=== PATIENT | female | born 1960 | race Caucasian/White ===

== ENCOUNTER → 2016-11-29 | Day surgery (SDC) | payer OTHER ==
[~2016-11-29] VITALS: Ht 168.9 cm; Wt 93.7 kg
[~2016-11-29] MED LIST: BACT800T5 PO; BUPIVACAINE/EPINEPHRINE 0.5% 50 ML VIAL ONE; CHLORHEXIDINE GLUCONATE 2 % 1 PACK (2 CLOTHS) TOPICAL PRN; CYCL-36 PO; DICL75 PO; DO NOT ADM ANY ANTICOAGULANT DRUGS PRN; EPIP0.3I IM; HYDR12.56 PO; INSULIN HUMAN REGULAR 1,000 UNITS/10 ML VIAL SQ PRN; KETOROLAC TROMETHAMINE 60 MG/2 ML (IM) VIAL IM ONE; LACTATED RINGER'S 1000 ML INJ 1,000 ML IV ONE; LACTATED RINGER'S 1000 ML IV PRN; METO50 PO; METOPROLOL TARTRATE 25 MG TAB PO PRN; MIDAZOLAM HCL 2 MG/2 ML VIAL ONE; POVIDONE IODINE 5% (ANTISEPSIS KIT) 4 APPLICATIONS EACH NARE PRN; PROPOFOL 200 MG/20 ML AMP IV ONE; SODIUM CHLORID 0.9% 500 ML IV PRN; ceFAZolin INJ 1,000 MG VIAL ONE; ePHEDrine/NS 25 MG/5 ML SYR IV ONE
[2016-11-29 12:40] LABS: AUTOMATED NEUTROPHIL # 3.9 TH/MM3 (1.8-7.7); BASOPHIL # 0.1 TH/MM3 (0-0.2); BASOPHIL % 0.8 % (0.0-2.0); EOSINOPHIL # 0.1 TH/MM3 (0-0.4); EOSINOPHIL % 2.1 % (0.0-4.0); HEMATOCRIT 41.9 % (35.0-46.0); HEMO FLAGS DIFF FINAL; LYMPH % 29.4 % (9.0-44.0); LYMPHOCYTE # 1.9 TH/MM3 (1.0-4.8); MEAN CORPUSCULAR HEMOGLOBIN 29.9 PG (27.0-34.0); MEAN CORPUSCULAR HGB CONC 32.5 % (32.0-36.0); MONO % 6.7 % (0.0-8.0); PLATELET COUNT 258 TH/MM3 (150-450); RED BLOOD COUNT 4.56 MIL/MM3 (4.00-5.30); RED CELL DISTRIBUTION WIDTH 13.1 % (11.6-17.2); WHITE BLOOD COUNT 6.4 TH/MM3 (4.0-11.0)
--- NOTE | 2016-11-29 13:36 | PD.HP.UP ---
H&P Update Note The Pre-Admit History and Physical Examination regarding the above named patient was reviewed (including, but not limited to, vital signs, heart, lungs, co-morbid conditions), and upon re-examination it is noted that: the patient's condition has not significantly changed since the last examination. Benja Ace MD Nov 29, 2016 13:36
--- NOTE | 2016-11-29 13:44 | EKG ---
Date Performed: 11/29/2016 Time Performed: 11:51:43 PTAGE: 56 years EKG: Sinus rhythm NORMAL ECG PREVIOUS TRACING : 06/29/2010 16.09 No significant change from previous tracing noted. DOCTOR: Jamey Sarmiento Interpretating Date/Time 11/29/2016 13:42:59
[2016-11-29 16:55] VITALS: BP 129/81; PULSE 69; RESP 20; TEMP 97.8; O2SAT 99
--- NOTE | 2016-11-30 23:18 | MP ---
cc: EMMANUEL GIBBS M.D. DATE OF SURGERY: November 29, 2016 PREOPERATIVE DIAGNOSIS 1. Subcutaneous mass of the abdominal wall 2. Sinus granuloma PROCEDURE: 1. Examination under anesthesia with excision of subcutaneous mass of abdominal wall. 2. Irrigation and debridement of abdominal wall, sinus granuloma. POSTOPERATIVE DIAGNOSIS: 1. Subcutaneous mass of the abdominal wall 2. Sinus granuloma SURGEON Dr. Gibbs PROCEDURE The patient was placed in the supine position. After adequate general anesthesia her abdomen was prepped with Betadine solution and draped in the usual sterile fashion. Initially a mass was palpated in the left mid upper abdomen in the subcutaneous tissue. A transverse incision was made over the mass taking down through the subcutaneous tissue identifying a mass in the subcutaneous tissue on top of the fascia. This was excised using electrocautery. It did not have any unusual characteristics and was somewhat firm to palpation. The mass was excised off the anterior fascia, taking some of the fascia with the mass leaving a small defect in the anterior rectus fascia. After complete excision, there did appear to be some Prolene suture material from her previous hernia repair in the region of the excision and this was removed, #1 PDS suture was then used to reapproximate the anterior rectus fascia over the rectus muscle. The subcutaneous tissue was irrigated copiously in the skin. The subcutaneous tissue and skin closed with interrupted Vicryl sutures and a running Vicryl suture for the skin. Several skin sarah applied. Previous right lower quadrant incision was examined and a small sinus was seen in the middle of the incision. Probe was used to identify the tract hitting caudally into the subcutaneous tissue and toward the anterior rectus fascia. The sinus tract was excised at the skin level and followed down toward the fascial level at which point again Prolene suture was noted at the base of the wound which appeared to be the cause of the sinus. The Prolene suture was removed, the wound curetted of all granulation tissue and other chronic inflamed tissue. After vigorous irrigation, the space was closed with interrupted Vicryl sutures and the skin closed loosely with a row of surgical sarah. The wound area was washed with normal saline and dried. Sterile dressing of telfa and gauze applied. The patient tolerated the procedure quite well and was brought to recovery room in stable condition. Sponge and needle counts were correct at the end of the procedure. MD WAYNE Lazo /10:55 PM /11:06 PM
== END | disposition home or self-care (01) ==
LOC: HSDC 11:13
PROVIDERS: ATTEND Colon & Rectal Surgery
DX: R19.00 Intra-abdominal and pelvic swelling, mass and lump, unspecified site (principal); I10 Essential (primary) hypertension
CPT/HCPCS: 00300; 11402; 85025; 88305; 93005; J0690; J1885; J2250; J3010; J7120; 88307

== ENCOUNTER 2017-03-19 11:27 | Emergency (ER) | payer OTHER ==
[~2017-03-19] VITALS: Ht 167.6 cm; Wt 82.0 kg
[2017-03-19 11:31] VITALS: BP 156/97; PULSE 80; RESP 16; TEMP 98.4; O2SAT 95
[2017-03-19] MEDS ORDERED: VANCOMYCIN INJ 1,250 MG in SODIUM CHLOR 0.9% 250 ML INJ 250 ML IV ONE (12:15)
[2017-03-19] MEDS ORDERED: SODIUM CHLORIDE 0.9% FLUSH 10 ML FLUSH IV FLUSH PRN (12:15)
--- NOTE | 2017-03-19 12:21 | PD ---
HPI Chief Complaint: Pain: Acute or Chronic Time Seen by Provider: 11:46 Travel History International Travel<30 days: No Contact w/Intl Traveler<30days: No Traveled to known affect area: No History of Present Illness HPI Patient is a 56-year-old female who presents to emergency room complaints of right anterior viera cellulitis. Patient reports that she noticed redness to her right anterior viera yesterday, reports that she does get cellulitis often. Patient denies any trauma, denies any injuries to her right anterior viera. Patient reports no fever or chills, patient reports that her tetanus is up-to- date. Patient denies any chest pain or shortness of breath, no history of PE or DVT, no recent travels or trips, reports that since she noticed the redness, she has also had increased swelling to her right lower extremity PFSH Past Medical History Autoimmune Disease: No Blood Disorders: No Heart Rhythm Problems: No Cancer: Yes (COLON and BREAST ) Cardiovascular Problems: No High Cholesterol: No Chemotherapy: Yes (COLON CA) Chest Pain: No Congestive Heart Failure: No Cerebrovascular Accident: No Diabetes: No Patient Takes Glucophage: No Diminished Hearing: No Endocrine: No Gastrointestinal Disorders: Yes (1993 COLON CA SX 1993 (RESECTION?), BOWEL OBSTRUCTIONS ) GERD: Yes Glaucoma: No Genitourinary: No Hepatitis: No Hiatal Hernia: Yes Hypertension: Yes (ERRATIC AND HIGH NORMAL-NOT ON MEDS) Immune Disorder: No Implanted Vascular Access Dvce: No Medical other: Yes (REFLUX) Musculoskeletal: Yes (POSSIBLE STENOSIS NECK & BACK) Neurologic: Yes (POSSIBLE NEUROPATHY TO BUE) Psychiatric: No Reproductive: Yes (FIBROIDS) Respiratory: Yes (CHRONIC COUGH) Immunizations Current: No Radiation Therapy: No Tetanus Vaccination: < 5 Years Influenza Vaccination: No ?: Not Menopausal: Yes Dilation and Curettage (D&C): Yes Past Surgical History Abdominal Surgery: Yes (COLON SURGERY , HERNIA REPAIR , ) AICD: No Body Medical Devices: PLATES IN JAW, VLAD IN COLON, MESH TO UMBILICAL HERNIA , PERM RETAINER Cardiac Surgery: No Ear Surgery: No Endocrine Surgery: No Eye Surgery: No Genitourinary Surgery: No Gynecologic Surgery: Yes (3 BIOPSIES R BREAST , SMALL FIBROIDS, D&C) Joint Replacement: No Oral Surgery: No Pacemaker: No Thoracic Surgery: No Other Surgery: Yes (SINUS MULTIPLE TIMES , R LUMPECTOMY, ) Social History Alcohol Use: Yes (OCCAS) Tobacco Use: No Substance Use: No Allergies-Medications (Allergen,Severity, Reaction): Coded Allergies: estrogens, conjugated (Unverified Allergy, Severe, Swelling, 03/19/17) levofloxacin (Unverified Allergy, Severe, hives,itching, 03/19/17) mometasone furoate (Verified Allergy, Severe, "roid rage", sever headache , 03/19/17) morphine (Verified Allergy, Severe, vomiting, 03/19/17) promethazine (Unverified Allergy, Severe, VOMITTING, 03/19/17) Uncoded Allergies: steroids (Allergy, Severe, itching,hives, 03/07/07) PREMARIN-ITCHING;SOB (Allergy, Unknown, 03/07/07) Reported Meds & Prescriptions Reported Meds & Active Scripts Active Bactrim DS (Sulfamethoxazole-Trimethoprim) 800-160 Mg Tab 1 Tab PO BID 10 Days Keflex (Cephalexin) 500 Mg Cap 500 Mg PO Q6H 10 Days Review of Systems General / Constitutional: No: Fever Eyes: No: Visual changes HENT: No: Headaches Cardiovascular: No: Chest Pain or Discomfort Respiratory: No: Shortness of Breath Gastrointestinal: No: Abdominal Pain Genitourinary: No: Dysuria Musculoskeletal: Positive: Edema, Pain Skin: Positive Other (redness and erythema to right anterior viera), No Rash Neurologic: No: Weakness Psychiatric: No: Depression Endocrine: No: Polydipsia Hematologic/Lymphatic: No: Easy Bruising Physical Exam Narrative GENERAL: NAD SKIN: Focused skin assessment warm/dry. HEAD: Atraumatic. Normocephalic. EYES: Pupils equal and round. No scleral icterus. No injection or drainage. ENT: No nasal bleeding or discharge. Mucous membranes pink and moist. NECK: Trachea midline. No JVD. CARDIOVASCULAR: Regular rate and rhythm. No murmur appreciated. RESPIRATORY: No accessory muscle use. Clear to auscultation. Breath sounds equal bilaterally. GASTROINTESTINAL: Abdomen soft, non-tender, nondistended. Hepatic and splenic margins not palpable. MUSCULOSKELETAL: No obvious deformities. No clubbing. No cyanosis. +1 edema to rle, no calf tenderness, negative Homans sign, patient with redness and erythema to right anterior viera, redness/cellulitis is not circumferential in nature, pulses intact, Neurovascularly intact. LLE: normal exam NEUROLOGICAL: Awake and alert. No obvious cranial nerve deficits. Motor grossly within normal limits. Normal speech. PSYCHIATRIC: Appropriate mood and affect; insight and judgment normal. Data Data Last Documented VS Vital Signs Date Time Temp Pulse Resp B/P (MAP) Pulse Ox O2 Delivery O2 Flow Rate FiO2 03/19/17 11:31 98.4 80 16 156/97 (116) 95 Orders Orders Basic Metabolic Panel (Bmp) (03/19/17 12:11) Complete Blood Count With Diff (03/19/17 12:11) Iv Access Insert/Monitor (03/19/17 12:11) Ecg Monitoring (03/19/17 12:11) Sodium Chloride 0.9% Flush (Ns Flush) (03/19/17 12:15) Vancomycin Inj (Vancomycin Inj) (03/19/17 12:15) Labs Laboratory Tests Test 03/19/17 12:45 White Blood Count 9.9 TH/MM3 Red Blood Count 4.32 MIL/MM3 Hemoglobin 13.4 GM/DL Hematocrit 40.3 % Mean Corpuscular Volume 93.3 FL Mean Corpuscular Hemoglobin 31.0 PG Mean Corpuscular Hemoglobin Concent 33.2 % Red Cell Distribution Width 12.9 % Platelet Count 209 TH/MM3 Mean Platelet Volume 8.0 FL Neutrophils (%) (Auto) 77.2 % Lymphocytes (%) (Auto) 15.7 % Monocytes (%) (Auto) 4.8 % Eosinophils (%) (Auto) 1.6 % Basophils (%) (Auto) 0.7 % Neutrophils # (Auto) 7.7 TH/MM3 Lymphocytes # (Auto) 1.6 TH/MM3 Monocytes # (Auto) 0.5 TH/MM3 Eosinophils # (Auto) 0.2 TH/MM3 Basophils # (Auto) 0.1 TH/MM3 CBC Comment DIFF FINAL Differential Comment Blood Urea Nitrogen 13 MG/DL Creatinine 0.74 MG/DL Random Glucose 87 MG/DL Calcium Level 9.1 MG/DL Sodium Level 141 MEQ/L Potassium Level 3.9 MEQ/L Chloride Level 105 MEQ/L Carbon Dioxide Level 28.2 MEQ/L Anion Gap 8 MEQ/L Estimat Glomerular Filtration Rate 81 ML/MIN MDM Medical Decision Making Medical Screen Exam Complete: Yes Emergency Medical Condition: Yes Medical Record Reviewed: Yes Interpretation(s) Vital Signs Date Time Temp Pulse Resp B/P (MAP) Pulse Ox O2 Delivery O2 Flow Rate FiO2 03/19/17 11:31 98.4 80 16 156/97 (116 95 Differential Diagnosis Cellulitis Narrative Course During the course of the patients emergency department visit, the patients history, examination, and differential diagnosis were reviewed with the patient. The patient was placed on a secured entrance monitor with oximetry and frequent blood pressure monitoring. The patient had an IV access obtained and blood work sent for analysis. The patient was initially provided IV Vancomycin The patients laboratory studies were reviewed and remarkable for: CBC & BMP Diagram 03/19/17 12:45 Calcium Level 9.1 Patient was given 1 dose of IV antibiotics, area of cellulitis was demarcated. Patient will complete full course of antibiotics. She will return to ER if symptoms worsen or progress or if she develops fever/chills. She will make an appointment with her pcp and will return to ER as needed Diagnosis Primary Impression: Cellulitis of right lower extremity Patient Instructions: General Instructions Departure Forms: Tests/Procedures, Work Release Enter return to work date: Mar 21, 2017 Additional Instructions: Please take all medications as prescribed Please follow-up with your primary care doctor or return to the emergency room in 48 hours if symptoms worsen or progress or if you develop fever/chills Return to the ER if symptoms worsen or progress Return to the ER as needed Med/Other Pt SpecificInfo: Prescription(s) given Scripts Sulfamethoxazole-Trimethoprim (Bactrim DS) 800-160 Mg Tab 1 TAB PO BID for Infection for 10 Days, #20 TAB 0 Refills Prov: Aishwarya Quick DO 03/19/17 Cephalexin (Keflex) 500 Mg Cap 500 MG PO Q6H for Infection for 10 Days, #40 CAP 0 Refills Prov: Aishwarya Quick DO 03/19/17 Disposition: 01 DISCHARGE HOME Condition: Stable Aishwarya Quick DO Mar 19, 2017 12:21
[2017-03-19 12:57] LABS: AUTOMATED NEUTROPHIL # 7.7 TH/MM3 (1.8-7.7); BASOPHIL # 0.1 TH/MM3 (0-0.2); BASOPHIL % 0.7 % (0.0-2.0); EOSINOPHIL # 0.2 TH/MM3 (0-0.4); EOSINOPHIL % 1.6 % (0.0-4.0); HEMATOCRIT 40.3 % (35.0-46.0); HEMO FLAGS DIFF FINAL; LYMPH % 15.7 % (9.0-44.0); LYMPHOCYTE # 1.6 TH/MM3 (1.0-4.8); MEAN CELL VOLUME 93.3 FL (80.0-100.0); MEAN CORPUSCULAR HGB CONC 33.2 % (32.0-36.0); MONO % 4.8 % (0.0-8.0); NEUT % 77.2 % (16.0-70.0); PLATELET COUNT 209 TH/MM3 (150-450); RED BLOOD COUNT 4.32 MIL/MM3 (4.00-5.30); RED CELL DISTRIBUTION WIDTH 12.9 % (11.6-17.2); WHITE BLOOD COUNT 9.9 TH/MM3 (4.0-11.0)
[2017-03-19] MEDS ORDERED: BACT800T5 PO (12:57)
[2017-03-19] MEDS ORDERED: CEPH-460 PO (12:57)
[2017-03-19 13:22] LABS: BICARBONATE 28.2 MEQ/L (21.0-32.0); POTASSIUM 3.9 MEQ/L (3.5-5.1)
[2017-03-19] MEDS ORDERED: CLIN300C5 PO (14:26)
[2017-03-19] MEDS ORDERED: diphenhydrAMINE HCL 50 MG/ML VIAL IV PUSH ONE (14:30)
[2017-03-19] MEDS ORDERED: diphenhydrAMINE HCL 25 MG CAP PO ONE (14:45)
== END 2017-03-19 15:55 | disposition home or self-care (01) ==
LOC: NEPD 11:27
DX: L03.115 Cellulitis of right lower limb (principal)
CPT/HCPCS: 80048; 85025; 96374; 96375; 99285; J3370; J7050

== ENCOUNTER 2017-05-30 14:20 | Emergency (ER) | payer OTHER ==
[~2017-05-30] VITALS: Ht 168.9 cm; Wt 81.2 kg
[~2017-05-30 14:20] MED LIST changes: -BACT800T5 PO; -BUPIVACAINE/EPINEPHRINE 0.5% 50 ML VIAL ONE; -CHLORHEXIDINE GLUCONATE 2 % 1 PACK (2 CLOTHS) TOPICAL PRN; +CLIN300C5 PO; -CYCL-36 PO; -DICL75 PO; -DO NOT ADM ANY ANTICOAGULANT DRUGS PRN; -EPIP0.3I IM; -HYDR12.56 PO; -INSULIN HUMAN REGULAR 1,000 UNITS/10 ML VIAL SQ PRN; -KETOROLAC TROMETHAMINE 60 MG/2 ML (IM) VIAL IM ONE; -LACTATED RINGER'S 1000 ML INJ 1,000 ML IV ONE; -LACTATED RINGER'S 1000 ML IV PRN; -METO50 PO; -METOPROLOL TARTRATE 25 MG TAB PO PRN; -MIDAZOLAM HCL 2 MG/2 ML VIAL ONE; -POVIDONE IODINE 5% (ANTISEPSIS KIT) 4 APPLICATIONS EACH NARE PRN; -PROPOFOL 200 MG/20 ML AMP IV ONE; -SODIUM CHLORID 0.9% 500 ML IV PRN; -ceFAZolin INJ 1,000 MG VIAL ONE; -ePHEDrine/NS 25 MG/5 ML SYR IV ONE
[2017-05-30 14:23] VITALS: BP 146/70; PULSE 67; RESP 16; TEMP 98.6; O2SAT 97
[2017-05-30] MEDS ORDERED: LIDOCAINE HCL 1% PF 30 ML VIAL ONE (14:51)
--- NOTE | 2017-05-30 14:55 | PD ---
HPI Chief Complaint: Laceration/Skin Injury Time Seen by Provider: 14:36 Travel History International Travel<30 days: No Contact w/Intl Traveler<30days: No Traveled to known affect area: No History of Present Illness HPI Patient comes to emergency department for evaluation of a laceration over her right middle finger dorsal aspect near the PIP joint. Patient reports that she was trying to get a to passenger after lowering the wheelchair ramp put the controller back cutting her finger on unknown object. Patient uncertain of her last tetanus shot. Patient reports applying pressure is prior to coming to the emergency department. Denies doing anything else for this. Denies any making symptoms better or worse. Reports mild burning sensation around site of laceration without radiation. Patient is right-hand dominant. PFSH Past Medical History Autoimmune Disease: No Blood Disorders: No Heart Rhythm Problems: No Cancer: Yes (COLON and BREAST ) Cardiovascular Problems: No High Cholesterol: No Chemotherapy: Yes (1990) Chest Pain: No Congestive Heart Failure: No Cerebrovascular Accident: No Diabetes: No Diminished Hearing: No Endocrine: No Gastrointestinal Disorders: Yes (1993 COLON CA SX 1993 (RESECTION?), BOWEL OBSTRUCTIONS ) GERD: Yes Glaucoma: No Genitourinary: No Hepatitis: No Hiatal Hernia: Yes Hypertension: Yes (ERRATIC AND HIGH NORMAL-NOT ON MEDS) Immune Disorder: No Implanted Vascular Access Dvce: No Musculoskeletal: Yes (POSSIBLE STENOSIS NECK & BACK) Neurologic: Yes (POSSIBLE NEUROPATHY TO BUE) Psychiatric: No Reproductive: Yes (FIBROIDS) Respiratory: Yes (CHRONIC COUGH) Immunizations Current: No Radiation Therapy: No Menopausal: Yes Dilation and Curettage (D&C): Yes Past Surgical History Abdominal Surgery: Yes (COLON SURGERY , HERNIA REPAIR , ) AICD: No Body Medical Devices: PLATES IN JAW, VLAD IN COLON, MESH TO UMBILICAL HERNIA , PERM RETAINER Cardiac Surgery: No Ear Surgery: No Endocrine Surgery: No Eye Surgery: No Genitourinary Surgery: No Gynecologic Surgery: Yes (3 BIOPSIES R BREAST , SMALL FIBROIDS, D&C) Joint Replacement: No Oral Surgery: No Pacemaker: No Thoracic Surgery: No Other Surgery: Yes (SINUS MULTIPLE TIMES , R LUMPECTOMY, ) Social History Alcohol Use: Yes (OCCAS) Tobacco Use: No Substance Use: No Allergies-Medications (Allergen,Severity, Reaction): Coded Allergies: estrogens, conjugated (Unverified Allergy, Severe, Swelling, 05/30/17) levofloxacin (Unverified Allergy, Severe, hives,itching, 05/30/17) mometasone furoate (Verified Allergy, Severe, "roid rage", sever headache , 05/30/17) morphine (Verified Allergy, Severe, vomiting, 05/30/17) promethazine (Unverified Allergy, Severe, VOMITTING, 05/30/17) Sulfa (Sulfonamide Antibiotics) (Verified Allergy, Intermediate, RASH, ITCHING, SOB, 05/30/17) sulfamethoxazole (Verified Allergy, Unknown, rashes, 05/30/17) trimethoprim (Verified Allergy, Unknown, rashes, 05/30/17) Uncoded Allergies: steroids (Allergy, Severe, itching,hives , 05/30/17) PREMARIN-ITCHING;SOB (Allergy, Unknown, UNKNOWN, 05/30/17) Reported Meds & Prescriptions Reported Meds & Active Scripts Active Clindamycin (Clindamycin HCl) 300 Mg Cap 300 Mg PO Q6H 10 Days Review of Systems Except as stated in HPI: all other systems reviewed are Neg Physical Exam Narrative GENERAL: Well-developed, overly nourished, in no acute distress, and non-ill appearing. SKIN: Small L-shaped laceration noted over the dorsal aspect of right middle finger near PIP joint. No foreign body, no crepitus, no tendon injury. Patient has full range of motion with flexion, extension, abduction, adduction, and opposition. Neurovascularly intact distally. HEAD: Atraumatic. Normocephalic. EYES: Pupils equal and round. EOMI. No scleral icterus. No injection or drainage. ENT: No nasal bleeding or discharge. Mucous membranes pink and moist. NECK: Trachea midline. Supple. No nuclear rigidity. CARDIOVASCULAR: Capillary refill less than 2 seconds. RESPIRATORY: No accessory muscle use. No respiratory distress. MUSCULOSKELETAL: No obvious deformities. No clubbing. No cyanosis. No edema. Full range of motion. NEUROLOGICAL: Awake and alert. No obvious cranial nerve deficits. Motor grossly within normal limits. Normal speech. PSYCHIATRIC: Appropriate mood and affect; insight and judgment normal. Data Data Last Documented VS Vital Signs Date Time Temp Pulse Resp B/P (MAP) Pulse Ox O2 Delivery O2 Flow Rate FiO2 05/30/17 14:23 98.6 67 16 146/70 (95) 97 Orders Orders Lidocaine 1% Inj (50 Ml) (Xylocaine 1% I (05/30/17 15:00) Tetanus/Diphtheria Tox Adult (Tetanus/Di (05/30/17 15:00) Bupivacaine Pf 0.5% Inj (Marcaine Pf 0.5 (05/30/17 15:00) Lidocaine Pf 1% Inj (Xylocaine-Mpf 1% In (05/30/17 14:51) Ed Discharge Order (05/30/17 15:35) MDM Medical Decision Making Medical Screen Exam Complete: Yes Emergency Medical Condition: Yes Differential Diagnosis Laceration, abrasion, avulsion, foreign body Narrative Course The patient suffered laceration to the finger. There was no evidence to suggest foreign bodies. Visual and tactile exams were unremarkable without evidence of foreign body at this time. There was no evidence of neurovascular injury. The patient had a normal distal vascular exam, and had full normal motor and sensory exams. There was also no evidence or tendon injury, with normal distal full range of motions, flexion, extension, abduction, adduction and opponens. There was no evidence of local joint space involvement at this time. The patient was irrigated with copious sterile normal saline and primary repair was performed. Please see procedure note. The patient was given signs and symptom warnings for infection, such as increasing pain, redness, swelling, associated heat, pus or fever. The patient was warned of possible unseen foreign body and instructed to return immediately if signs or symptoms develop. The patient was given instructions for timely follow up. The patient agreed with plan of care. Patient in no obvious distress upon re-evaluation. Any questions/concerns in reference to patient diagnosis/condition discussed and clarified prior to patient's discharge. Reinforced sheer importance of close follow up with patient 's primary physician or primary care clinic. Instructed patient to return to ED immediately, if symptoms return/worsen. Patient showed understanding of above instructions. Further instructions and recommendations were detailed in discharge paperwork. Patient ambulated without difficulty out of ED at discharge. Procedures Procedure Narrative LACERATION REPAIR LOCATION: Right middle finger dorsal aspect near the PIP joint LENGTH: Approximately 2 cm in total length L-shaped NUMBER OF STITCHES/VLAD: 4 simple interrupted REPAIR: Verbal consent was obtained. The area of the laceration was cleaned and prepped. Digital block was performed using a mixture of Marcaine without epi and lidocaine without epi. The wound was copiously irrigated and explored without evidence of foreign body, bony involvement, ligament injury, tendon injury, or neurovascular injury. The wound was closed using 4-0 Vicryl by medical student Nedra under my supervision. This was a single layer repair. A sterile dressing was applied by nurse. The patient was advised to keep the affected area as clean and dry as possible using soap and water. There were no complications. Patient tolerated the procedure well. Diagnosis Primary Impression: Finger laceration Qualified Codes: S61.212A - Laceration without foreign body of right middle finger without damage to nail, initial encounter Referrals: Henry Ang MD Patient Instructions: Care For Your Absorbable Stitches (ED), Finger Laceration (ED), General Instructions Additional Instructions: Follow-up with your Workmen's Comp. provider and/or hand surgeon this week for reevaluation. Keep wound dry and clean as possible using soap and water. Use Neosporin to promote healing. Do not soak or submerge wound. Takeoff finger splint tomorrow. Return to the emergency department if symptoms get worse. Disposition: 01 DISCHARGE HOME Condition: Stable Curt Schuster May 30, 2017 14:55
[2017-05-30] MEDS ORDERED: BUPIVACAINE HCL PF 0.5% 10 ML VIAL INFIL ONE (15:00)
[2017-05-30] MEDS ORDERED: LIDOCAINE HCL 1% 50 ML VIAL INFIL ONE (15:00)
[2017-05-30] MEDS ORDERED: TETANUS/DIPHTHERIA TOXOID ADULT 0.5 ML VIAL IM ONE (15:00)
== END 2017-05-30 15:54 | disposition home or self-care (01) ==
LOC: PHEFT 14:20
DX: S61.212A Laceration without foreign body of right middle finger without damage to nail, initial encounter (principal); W45.8XXA Other foreign body or object entering through skin, initial encounter; Y99.0 Civilian activity done for income or pay; I10 Essential (primary) hypertension; K21.9 Gastro-esophageal reflux disease without esophagitis; Z23 Encounter for immunization; Z85.038 Personal history of other malignant neoplasm of large intestine; Z85.3 Personal history of malignant neoplasm of breast
CPT/HCPCS: 12001; 90471; 90714

== ENCOUNTER 2017-06-27 12:28 | Emergency (ER) | payer OTHER ==
[~2017-06-27] VITALS: Ht 168.9 cm; Wt 77.3 kg
[2017-06-27 13:09] VITALS: BP 147/92; PULSE 62; RESP 18; TEMP 98.2; O2SAT 99
--- NOTE | 2017-06-27 14:35 | RADRPT ---
EXAM DATE/TIME: 06/27/2017 14:10 [facility] COMPARISON: CT SIMULATION, April 02, 2015, 15:10. INDICATIONS : Tripped and fell head first. RADIATION DOSE: 56.35 CTDIvol (mGy) MEDICAL HISTORY : Hypertension. Carcinoma, colon. Carcinoma, breast.Neuropothy SURGICAL HISTORY : Colon resection. lumpectomy,sinus surgery ENCOUNTER: Initial ACUITY: 1 day PAIN SCALE: 10/10 LOCATION: cranial TECHNIQUE: Multiple contiguous axial images were obtained of the head. Using automated exposure control and adj ustment of the mA and/or kV according to patient size, radiation dose was kept as low as reasonably a chievable to obtain optimal diagnostic quality images. DICOM format image data is available electro nically for review and comparison. FINDINGS: CEREBRUM: The ventricles are normal for age. No evidence of midline shift, mass lesion, hemorrhage or acute in farction. No extra-axial fluid collections are seen. POSTERIOR FOSSA: The cerebellum and brainstem are intact. The 4th ventricle is midline. The cerebellopontine angle i s unremarkable. EXTRACRANIAL: The visualized portion of the orbits is intact. SKULL: The calvaria is intact. No evidence of skull fracture. The examination does demonstrate a sizable he matoma within the scalp along the right frontal region. CONCLUSION: 1. Subcutaneous hematoma within the scalp. 2. No acute intracranial abnormality is identified. Mu Bailey MD on June 27, 2017 at 14:31 Board Certified Radiologist. This report was verified electronically.
[2017-06-27 15:03] VITALS: BP 170/85; PULSE 63; RESP 17; O2SAT 97
[2017-06-27] MEDS ORDERED: IBUP-232 PO (15:07)
--- NOTE | 2017-06-27 15:08 | PD ---
HPI Chief Complaint: Head Injury Time Seen by Provider: 14:47 Travel History International Travel<30 days: No Contact w/Intl Traveler<30days: No Traveled to known affect area: No History of Present Illness HPI 56-year-old female presents to the emergency department for evaluation after she hit her head. Patient states that she hit her head against a garbage truck. She denies LOC. She has ecchymosis and swelling to the right forehead. Patient reports past medical history of colon cancer and breast cancer. She is not on any prescribed medications. She denies being on anticoagulants or having any bleeding disorders. Patient reports being slightly dizzy. She denies any neck pain or back pain. No chest pain or abdominal pain. No vomiting. She reports some slight nausea. Current pain is 5/10 to the right forehead without radiation, aching and throbbing. Moderate severity. Tetanus immunization is up-to-date according to the patient. PFSH Past Medical History Autoimmune Disease: No Blood Disorders: No Heart Rhythm Problems: No Cancer: Yes (COLON and BREAST ) Cardiovascular Problems: No High Cholesterol: No Chemotherapy: Yes (1990) Chest Pain: No Congestive Heart Failure: No Cerebrovascular Accident: No Diabetes: No Diminished Hearing: No Endocrine: No Gastrointestinal Disorders: Yes (1993 COLON CA SX 1993 (RESECTION?), BOWEL OBSTRUCTIONS ) GERD: Yes Glaucoma: No Genitourinary: No Hepatitis: No Hiatal Hernia: Yes Hypertension: Yes (ERRATIC AND HIGH NORMAL-NOT ON MEDS) Immune Disorder: No Implanted Vascular Access Dvce: No Musculoskeletal: Yes (POSSIBLE STENOSIS NECK & BACK) Neurologic: Yes (POSSIBLE NEUROPATHY TO BUE) Psychiatric: No Reproductive: Yes (FIBROIDS) Respiratory: Yes (CHRONIC COUGH) Immunizations Current: No Radiation Therapy: No Menopausal: Yes Dilation and Curettage (D&C): Yes Past Surgical History Abdominal Surgery: Yes (COLON SURGERY , HERNIA REPAIR , ) AICD: No Body Medical Devices: PLATES IN JAW, VLAD IN COLON, MESH TO UMBILICAL HERNIA , PERM RETAINER Cardiac Surgery: No Ear Surgery: No Endocrine Surgery: No Eye Surgery: No Genitourinary Surgery: No Gynecologic Surgery: Yes (3 BIOPSIES R BREAST , SMALL FIBROIDS, D&C) Joint Replacement: No Oral Surgery: No Pacemaker: No Thoracic Surgery: No Other Surgery: Yes (SINUS MULTIPLE TIMES , R LUMPECTOMY, ) Social History Alcohol Use: Yes (OCCAS) Tobacco Use: No Substance Use: No Allergies-Medications (Allergen,Severity, Reaction): Coded Allergies: estrogens, conjugated (Unverified Allergy, Severe, Swelling, 05/30/17) levofloxacin (Unverified Allergy, Severe, hives,itching, 05/30/17) mometasone furoate (Verified Allergy, Severe, "roid rage", sever headache , 05/30/17) morphine (Verified Allergy, Severe, vomiting, 05/30/17) promethazine (Unverified Allergy, Severe, VOMITTING, 05/30/17) Sulfa (Sulfonamide Antibiotics) (Verified Allergy, Intermediate, RASH, ITCHING, SOB, 05/30/17) sulfamethoxazole (Verified Allergy, Unknown, rashes, 05/30/17) trimethoprim (Verified Allergy, Unknown, rashes, 05/30/17) Uncoded Allergies: steroids (Allergy, Severe, itching,hives , 05/30/17) PREMARIN-ITCHING;SOB (Allergy, Unknown, UNKNOWN, 05/30/17) Reported Meds & Prescriptions Reported Meds & Active Scripts Active Ibuprofen 600 Mg Tab 600 Mg PO TID PRN Clindamycin (Clindamycin HCl) 300 Mg Cap 300 Mg PO Q6H 10 Days Review of Systems Except as stated in HPI: all other systems reviewed are Neg Physical Exam Narrative GENERAL: Well-nourished, well-developed female patient, ambulatory. Afebrile SKIN: Focused skin assessment warm/dry. Patient has small superficial laceration to the right periorbital area. This is superficial and not amenable to sutures. She also has ecchymosis to the right forehead with swelling noted. HEAD: Normocephalic. EYES: No scleral icterus. No injection or drainage. NECK: Supple, trachea midline. No JVD or lymphadenopathy. CARDIOVASCULAR: Regular rate and rhythm without murmurs, gallops, or rubs. RESPIRATORY: Breath sounds equal bilaterally. No accessory muscle use. Lung sounds are clear to auscultation. GASTROINTESTINAL: Abdomen soft, non-tender, nondistended. MUSCULOSKELETAL: No cyanosis, or edema. No bony point tenderness. BACK: Nontender without obvious deformity. No CVA tenderness. No midline spinal tenderness. Data Data Last Documented VS Vital Signs Date Time Temp Pulse Resp B/P (MAP) Pulse Ox O2 Delivery O2 Flow Rate FiO2 06/27/17 15:03 63 17 170/85 (113) 97 Room Air 06/27/17 13:[address] Brain W/O Iv Contrast(Rout) (06/27/17 ) Ed Discharge Order (06/27/17 15:12) MDM Medical Decision Making Medical Screen Exam Complete: Yes Emergency Medical Condition: Yes Medical Record Reviewed: Yes Interpretation(s) Last Impressions Head CT 06/27/17 0000 Signed Impressions: Service Date/Time: Tuesday, June 27, 2017 14:10 - CONCLUSION: 1. Subcutaneous hematoma within the scalp. 2. No acute intracranial abnormality is identified. Mu Bailey MD Differential Diagnosis Closed head injury versus intracranial hemorrhage versus skull fracture Narrative Course 56-year-old female presents to the emergency department for evaluation after head injury that occurred just prior to arrival. She has no other injury or complaint. CT of the brain was done in triage which showed subcutaneous hematoma within the scalp, no acute intracranial abnormality. Patient will be stable for discharge. She agrees to this. She will be discharged with a prescription for ibuprofen for pain. She is instructed to use ice on forehead. She is to follow-up with her Worker's Comp. physician. The patient was discharged in stable condition with instructions, including return instructions and follow up instructions. Diagnosis Primary Impression: Closed head injury without loss of consciousness Qualified Codes: S09.90XA - Unspecified injury of head, initial encounter Referrals: Primary Care Physician call for appointment Patient Instructions: General Instructions, Head Injury (ED) Additional Instructions: Ice for 20 minutes on, 20 minutes off. Take ibuprofen as instructed as needed with food for pain. Follow up with your Worker's Comp. physician. Return to the emergency department for any acute worsening of symptoms per Med/Other Pt SpecificInfo: Prescription(s) given Scripts Ibuprofen (Ibuprofen) 600 Mg Tab 600 MG PO TID Y for PAIN SCALE 1 TO 10, #21 TAB 0 Refills Prov: FrenchSilke HANSON 06/27/17 Disposition: 01 DISCHARGE HOME Condition: Stable French,Silke HANSON Jun 27, 2017 15:08
== END 2017-06-27 15:37 | disposition home or self-care (01) ==
LOC: NETRI 12:28 → NEPC 15:37
DX: S09.90XA Unspecified injury of head, initial encounter (principal); S00.83XA Contusion of other part of head, initial encounter; R42 Dizziness and giddiness; K21.9 Gastro-esophageal reflux disease without esophagitis; I10 Essential (primary) hypertension; Z85.038 Personal history of other malignant neoplasm of large intestine; Z85.3 Personal history of malignant neoplasm of breast; W22.8XXA Striking against or struck by other objects, initial encounter; Y92.812 Truck as the place of occurrence of the external cause
CPT/HCPCS: 70450

== ENCOUNTER 2017-07-06 14:57 | Emergency (ER) | payer OTHER ==
[~2017-07-06] VITALS: Ht 167.6 cm; Wt 82.0 kg
[~2017-07-06 14:57] MED LIST changes: +IBUP-232 PO
[2017-07-06 15:00] VITALS: BP 176/87; PULSE 62; RESP 16; TEMP 97.8; O2SAT 99
--- NOTE | 2017-07-06 15:56 | PD ---
HPI Chief Complaint: Injury Time Seen by Provider: 15:40 Travel History International Travel<30 days: No Contact w/Intl Traveler<30days: No Traveled to known affect area: No History of Present Illness HPI 56-year-old female that presents to the ED for evaluation of injuring her head. Per patient she was getting into her bus and she bumped the top of her head on a padded rail. No pain. No LOC. Patient was brought here for evaluation by Worker's Comp. she denies any numbness, tingling or weakness. She does have significant bruising and swelling from a previous injury about 2 weeks ago. She states that she takes Motrin and Tylenol. Per patient she has no pain at this time. Multiple allergies to different medications. Patient has no arm or leg pain. No neck pain or back pain. No other medical issues. Per patient she feels fine and she wants to go back to work. No pain. No other medical issues. PFSH Past Medical History Autoimmune Disease: No Blood Disorders: No Heart Rhythm Problems: No Cancer: Yes (COLON and BREAST ) Cardiovascular Problems: No High Cholesterol: No Chemotherapy: Yes (1990) Chest Pain: No Congestive Heart Failure: No Cerebrovascular Accident: No Diabetes: No Diminished Hearing: No Endocrine: No Gastrointestinal Disorders: Yes (1993 COLON CA SX 1993 (RESECTION?), BOWEL OBSTRUCTIONS ) GERD: Yes Glaucoma: No Genitourinary: No Hepatitis: No Hiatal Hernia: Yes Hypertension: Yes (ERRATIC AND HIGH NORMAL-NOT ON MEDS) Immune Disorder: No Implanted Vascular Access Dvce: No Musculoskeletal: Yes (POSSIBLE STENOSIS NECK & BACK) Neurologic: Yes (POSSIBLE NEUROPATHY TO BUE) Psychiatric: No Reproductive: Yes (FIBROIDS) Respiratory: Yes (CHRONIC COUGH) Immunizations Current: No Radiation Therapy: No Menopausal: Yes Dilation and Curettage (D&C): Yes Past Surgical History Abdominal Surgery: Yes (COLON SURGERY , HERNIA REPAIR , ) AICD: No Body Medical Devices: PLATES IN JAW, VLAD IN COLON, MESH TO UMBILICAL HERNIA , PERM RETAINER Cardiac Surgery: No Ear Surgery: No Endocrine Surgery: No Eye Surgery: No Genitourinary Surgery: No Gynecologic Surgery: Yes (3 BIOPSIES R BREAST , SMALL FIBROIDS, D&C) Joint Replacement: No Oral Surgery: No Pacemaker: No Thoracic Surgery: No Other Surgery: Yes (SINUS MULTIPLE TIMES , R LUMPECTOMY, ) Social History Alcohol Use: Yes (OCCAS) Tobacco Use: No Substance Use: No Allergies-Medications (Allergen,Severity, Reaction): Coded Allergies: estrogens, conjugated (Unverified Allergy, Severe, Swelling, 07/06/17) levofloxacin (Unverified Allergy, Severe, hives,itching, 07/06/17) mometasone furoate (Verified Allergy, Severe, "roid rage", sever headache , 07/06/17) morphine (Verified Allergy, Severe, vomiting, 07/06/17) promethazine (Unverified Allergy, Severe, VOMITTING, 07/06/17) Sulfa (Sulfonamide Antibiotics) (Verified Allergy, Intermediate, RASH, ITCHING, SOB, 07/06/17) sulfamethoxazole (Verified Allergy, Unknown, rashes, 07/06/17) trimethoprim (Verified Allergy, Unknown, rashes, 07/06/17) Uncoded Allergies: steroids (Allergy, Severe, itching,hives , 05/30/17) PREMARIN-ITCHING;SOB (Allergy, Unknown, UNKNOWN, 05/30/17) Reported Meds & Prescriptions Reported Meds & Active Scripts Active Ibuprofen 600 Mg Tab 600 Mg PO TID PRN Clindamycin (Clindamycin HCl) 300 Mg Cap 300 Mg PO Q6H 10 Days Review of Systems Except as stated in HPI: all other systems reviewed are Neg Physical Exam Narrative GENERAL: SKIN: Warm and dry. HEAD: Atraumatic. Normocephalic. EYES: Pupils equal and round 4 mm reactive to light and accommodation. No scleral icterus. No injection or drainage. Patient has bruising and swelling around the right forehead on the right eyelids as well as the cheek. Per patient this is chronic. ENT: No nasal bleeding or discharge. Mucous membranes pink and moist. NECK: Trachea midline. No JVD. CARDIOVASCULAR: Regular rate and rhythm. RESPIRATORY: No accessory muscle use. Clear to auscultation. Breath sounds equal bilaterally. GASTROINTESTINAL: Abdomen soft, non-tender, nondistended. Hepatic and splenic margins not palpable. MUSCULOSKELETAL: Extremities without clubbing, cyanosis, or edema. No obvious deformities. Full range of motion of the upper and lower extremities bilaterally. 2+ pulses bilaterally. No lumbar, thoracic, cervical spine tenderness to palpation. Gait normal. Ambulatory. NEUROLOGICAL: Awake and alert. No obvious cranial nerve deficits. Motor grossly within normal limits. Five out of 5 muscle strength in the arms and legs. Normal speech. PSYCHIATRIC: Appropriate mood and affect; insight and judgment normal. Data Data Last Documented VS Vital Signs Date Time Temp Pulse Resp B/P (MAP) Pulse Ox O2 Delivery O2 Flow Rate FiO2 07/06/17 15:00 97.8 62 16 176/87 (116) 99 Orders Orders Ed Discharge Order (07/06/17 15:47) MDM Medical Decision Making Medical Screen Exam Complete: Yes Emergency Medical Condition: Yes Medical Record Reviewed: Yes Differential Diagnosis Head injury versus minor head injury versus normal exam versus contusion Narrative Course 56-year-old female that presents to the ED for evaluation of head injury. Patient was probably examined and was found to have signs and symptoms consistent appears to be minor head injury. There is no sign of acute neurological deficits. Patient has no pain from this injury. There is no sign of bruising alert and what she has from a previous injury. Area where she was hit was in the mid scalp and there is no sign of swelling or bruising. She denies any symptoms. Per patient she is here mainly because Worker's Comp made her come. She is here hoping that she can go back to work today. No other medical issues. CT was offered but at this time and not think that is necessary and patient agrees with this. Told to take Tylenol Motrin for pain as needed. Follow-up with PCP. See ED worsening symptoms. Diagnosis Primary Impression: Minor head injury Qualified Codes: S09.90XA - Unspecified injury of head, initial encounter Patient Instructions: General Instructions Additional Instructions: Motrin or Tylenol for pain. Follow-up with PCP or workerscomp. See ED worsening symptoms. Med/Other Pt SpecificInfo: No Change to Meds Disposition: 01 DISCHARGE HOME Condition: Stable Hansel Granado Jul 06, 2017 15:56
== END 2017-07-06 16:08 | disposition home or self-care (01) ==
LOC: PHEFT 14:57
DX: S09.90XA Unspecified injury of head, initial encounter (principal); I10 Essential (primary) hypertension; K21.9 Gastro-esophageal reflux disease without esophagitis; W22.8XXA Striking against or struck by other objects, initial encounter; Z88.2 Allergy status to sulfonamides; Z88.8 Allergy status to other drugs, medicaments and biological substances; Z88.5 Allergy status to narcotic agent
CPT/HCPCS: 99283